=== PATIENT | female | born 1950 | race Caucasian/White ===

== ENCOUNTER → 2017-08-09 | Outpatient (CLI) | payer BC | END | disposition home or self-care (01) | LOC: STAR 07:54 | PROVIDERS: ATTEND Surgery | DX: Z01.818 Encounter for other preprocedural examination (principal) | CPT/HCPCS: 93005 ==

== ENCOUNTER 2017-08-14 05:55 | Day surgery (SDC) | payer BC ==
[~2017-08-14] VITALS: Ht 162.6 cm; Wt 63.1 kg
[2017-08-14] MEDS ORDERED: LACTATED RINGERS 1,000 ML IV SCH (06:08)
[2017-08-14] MEDS ORDERED: MIDAZOLAM 1 MG/ML, 2ML ONE (06:43)
[2017-08-14] MEDS ORDERED: FENTANYL PF 250 MCG/5ML ONE (06:43)
[2017-08-14] MEDS ORDERED: PROPOFOL 10 MG/ML, 20ML ONE (06:44)
[2017-08-14] MEDS ORDERED: WATER-INJECTION,STERILE 10 ML IV ONE (06:45)
[2017-08-14] MEDS ORDERED: CEFAZOLIN 1,000 MG ONE ×2 (06:45→06:46)
[2017-08-14] MEDS ORDERED: ROCURONIUM 10MG/ML,5ML ONE (06:47)
[2017-08-14] MEDS ORDERED: DEXAMETHASONE 4 MG/ML, 1ML ONE ×2 (06:49→06:50)
[2017-08-14] MEDS ORDERED: GLYCOPYRROLATE 0.4 MG/2 ML, 2ML ONE (06:49)
[2017-08-14] MEDS ORDERED: NEOSTIGMINE 1 MG/ML, 10ML ONE (06:49)
[2017-08-14] MEDS ORDERED: ONDANSETRON 2MG/ML, 2ML ONE (06:50)
[2017-08-14] MEDS ORDERED: EPINEPHRINE 1 MG/ML, 1ML ONE (06:55)
[2017-08-14] MEDS ORDERED: BUPIVACAINE/PF 0.25% ONE (06:55)
[2017-08-14] MEDS ORDERED: SCOPOLAMINE PATCH, 1.5MG PATCH.TD72 TD ONE ×2 (07:13→07:34)
[2017-08-14] MEDS ORDERED: hydrALAzine 20 MG/ML, 1ML IV PRN (07:30)
[2017-08-14] MEDS ORDERED: FENTANYL PF 100 MCG/2ML IV PRN (07:30)
[2017-08-14] MEDS ORDERED: ONDANSETRON 2MG/ML, 2ML IVPush PRN (07:30)
[2017-08-14] MEDS ORDERED: ACETAMINOPHEN 325 MG TABLET PO PRN (07:30)
[2017-08-14] MEDS ORDERED: HYDROmorphone 1 MG/ML, 1ML IV PRN (07:30)
[2017-08-14] MEDS ORDERED: OXYcodone 5 MG/5 ML ORAL.SOL UDC PO PRN (07:30)
[2017-08-14] MEDS ORDERED: PROMETHAZINE 25 MG/ML, 1ML IV PRN (07:30)
[2017-08-14] MEDS ORDERED: LABETALOL 5MG/ML, 20ML IV PRN (07:30)
[2017-08-14] MEDS ORDERED: morphine SULFATE 10 MG/ML, 1ML IV PRN (07:30)
[2017-08-14] MEDS ORDERED: MEPERIDINE/PF 25MG/0.5ML IVPush PRN (07:30)
[2017-08-14] MEDS ORDERED: METOCLOPRAMIDE 5 MG/ML, 2ML IV PRN (07:30)
[2017-08-14] MEDS ORDERED: PROMETHAZINE 12.5 MG SUPP PR PRN (07:30)
[2017-08-14] MEDS ORDERED: METOCLOPRAMIDE 5 MG/ML, 2ML ONE (08:41)
== END 2017-08-14 10:40 | disposition home or self-care (01) ==
LOC: OUT 05:55
PROVIDERS: ATTEND Surgery
DX: C85.81 Other specified types of non-Hodgkin lymphoma, lymph nodes of head, face, and neck (principal); Z98.890 Other specified postprocedural states
CPT/HCPCS: 38500; 87070; 87075; 87102; 87116; 87205; 87206; 87252; 88305; J0171; J0690; J1100; J2250; J2405; J2704; J2710; J2765; J3010; J3490; J7120

== ENCOUNTER → 2017-09-28 | Outpatient (CLI) | payer BC, MEDICARE ==
[~2017-09-28] MED LIST: OMNIPAQUE 350 MG/ML, 150 ML BOTTLE ONE
== END ==
LOC: CFH 12:21
PROVIDERS: ATTEND Internal Medicine Hematology & Oncology
DX: C08.0 Malignant neoplasm of submandibular gland (principal); D72.820 Lymphocytosis (symptomatic)
CPT/HCPCS: 70491; 71260; 74177; Q9967

== ENCOUNTER → 2019-09-09 | Outpatient (CLI) | payer BC, MEDICARE ==
[~2019-09-09] MED LIST changes: +OMNIPAQUE 350 MG/ML, 100ML BOTTLE ONE; -OMNIPAQUE 350 MG/ML, 150 ML BOTTLE ONE
== END | disposition home or self-care (01) ==
LOC: CFH 12:26
PROVIDERS: ATTEND Internal Medicine Hematology & Oncology
DX: C08.0 Malignant neoplasm of submandibular gland (principal); C91.12 Chronic lymphocytic leukemia of B-cell type in relapse; K76.89 Other specified diseases of liver; Z90.49 Acquired absence of other specified parts of digestive tract
CPT/HCPCS: 71260; 74177; 82565; Q9967